=== PATIENT | female | born 1955 | race Caucasian/White ===

== ENCOUNTER → 2016-09-09 19:42 | Outpatient (CLI) | payer OTHER ==
[2015-12-31 06:17] VITALS: BMI 33.8
[~2016-09-09 19:42] MED LIST: ADIPEX-P37.5 MG PO; BAYER CHEWABLE81 MG PO; BELVIQ PO; CHANTIX 1 MG TAB1 MG PO; DULERA 100 MCG8.8 GM INH; HYDROCODON-ACE1 EAC7 PO; HYDROCODONE-APA1 TAB PO; KLONOPIN0.5 MG PO; MILK THISTLE140 MG PO; PLAVIX75 MG PO; SOMA250 MG PO; SOMA350 MG PO; THEOCHRON300 MG; THEOCHRON300 MG PO; TOPROL XL25 MG PO; VENTOLIN HFA18 GM INH; VITAMIN E200 UNI1 PO; VITAMIN E400 UNI2 PO
== END | disposition home or self-care (01) ==
LOC: D.SLEEP 19:42
DX: G47.36 Sleep related hypoventilation in conditions classified elsewhere (principal)

== ENCOUNTER → 2016-10-02 19:21 | Outpatient (CLI) | payer OTHER ==
[2015-12-31 06:17] VITALS: BMI 33.8
== END | disposition home or self-care (01) ==
LOC: D.SLEEP 09-25 20:00
DX: G47.36 Sleep related hypoventilation in conditions classified elsewhere (principal)

== ENCOUNTER → 2016-10-23 10:02 | Outpatient (CLI) | payer OTHER ==
[2015-12-31 06:17] VITALS: BMI 33.8
== END | disposition home or self-care (01) ==
LOC: D.CT 10-20 13:00
DX: J44.9 Chronic obstructive pulmonary disease, unspecified (principal)

== ENCOUNTER → 2017-03-11 13:07 | Outpatient (CLI) | payer OTHER ==
[2015-12-31 06:17] VITALS: BMI 33.8
== END | disposition home or self-care (01) ==
LOC: D.MAMMO 13:07
DX: Z12.31 Encounter for screening mammogram for malignant neoplasm of breast (principal)

== ENCOUNTER → 2017-09-06 07:18 | Outpatient (CLI) | payer OTHER ==
[2015-12-31 06:17] VITALS: BMI 33.8
[~2017-09-06 07:18] MED LIST changes: +BUPROPION XL300 MG PO; +DULERA 200 MCG8.8 GM INH; +INCRUSE ELLI62.5 MCG INH; +IPRATROPIUM BR42 MCG NASAL; +NASONEX NASAL S17 GM NS; +NITROSTAT0.4 MG SL; +SINGULAIR10 MG PO; +VITAMIN D31000 UNIT PO
== END | disposition home or self-care (01) ==
LOC: D.RT 07:18
DX: J44.9 Chronic obstructive pulmonary disease, unspecified (principal)

== ENCOUNTER 2017-09-09 06:58 | Outpatient (CLI) | payer OTHER ==
[~2017-09-09] VITALS: Ht 167.6 cm; Wt 96.4 kg
--- NOTE | ~2017-09-09 | HEMODYNAMI ---
PATIENT:PRESTON KING JANUARY MEDICAL RECORD: [id number] : 59 LOCATION:[facility] ADMISSION DATE: 09/09/17 Generatedon:09/09/201710:32 Patient name: PRESTON KING Patient #: [id number] SSN: : 10[birth year] Date of study: 09/09/2017 Page: Of Hemodynamic Procedure Report Patient Data Patient Demographics Procedure consent was obtained First Name: PRESTON Gender: Female Last Name: CHRISTINE : 1955 Middle Initial: JANUARY Age: 61 year(s) Patient #: [id number] Race: Additional ID: [id number] Contact details Address: [address] [place] [address] ROAD State: [place] City: [place] Zip code: [address] Past Medical History Allergies Allergen Reaction Date Comments Reported Other allergy 12/31/2015 Compazine Other allergy 09/09/2017 COMPAZINE Admission Admission Data Admission Date: 09/09/2017 Admission Time: 6:58 Height (in.): 5.6 BSA: 0.34 (m2) Height (cm.): 14.22 BMI: 4730.48 (kg/m2) Weight (lbs.): 211 Weight (kg.): 95.71 Lab Results Lab Result Date: 09/09/2017 Lab Result Time: 0:00 Biochemistry Name Units Result Min Max BUN mg/dl 14 --(--*-)-- 7 18 Creatinine mg/dl 1.1 --(--*-)-- 0.6 1.3 CBC Name Units Result Min Max Hemoglobin g/dl 13.8 --(*---)-- 13.5 17.5 Procedure Procedure Types Cath Procedure Diagnostic Procedure [facility] w/Coronaries FFR/IVUS Intra-Coronary IVUS Initial PCI Procedure Coronary Stent Coronary Stent Initial Miscellaneous Procedures Moderate Sedation up to 45 minutes Procedure Description Procedure Date Procedure Date: 09/09/2017 Procedure Start Time: 9:47 Procedure End Time: 10:30 Procedure Staff Name Function Brian Man MD Performing Physician Anahy Lyons RT Monitor Ned Perez RT Scrub Parish Ochoa RN Nurse Procedure Data Cath Procedure Fluoroscopy Diagnostic fluoroscopy Total fluoroscopy Time: 6.4 time: 6.4 min min Diagnostic fluoroscopy Total fluoroscopy dose: 851 dose: 851 mGy mGy Contrast Material Contrast Material Type Amount (ml) Isovue 300 117 Entry Location Entry Primary Successful Side Size Upsize Upsize Entry Closure Succes sful Closure Location (Fr) 1 (Fr) 2 (Fr) Remarks Device Remarks Femoral Right 5 Fr 6 Fr Exoseal artery Short Estimated blood loss: 10 ml Diagnostic catheters Device Type Used For End Catheter Placement MULTIPACK JL 4.0 5Fr Procedure catheter MULTIPACK 3DRC 5Fr Procedure catheter MULTIPACK Pigtail 5 Fr Procedure catheter Procedure Complications No complications Procedure Medications Medication Administration Route Dosage Oxygen NC 2 l/min Heparin Flush Bag added to field 2 bags (1000units/500ml NS) 0.9% NaCl I.V. 100 ml/hr Radial Cocktail added to field 1 syringe (Verapomil 2mg/Nitro 400mcg/Heparin 1500units) Fentanyl I.V. 50 mcg Versed I.V. 1 mg Fentanyl I.V. 50 mcg Versed I.V. 1 mg Fentanyl I.V. 50 mcg Fentanyl I.V. 50 mcg Heparin Bolus I.V. 9000 units Fentanyl I.V. 50 mcg Plavix P.O. 600 mg Hemodynamics Rest BSA: 0.34 (m2) HGB: 13.8 (g/dl) O2 Consumption: Estimated: 30.17 (ml/min) O2 Con sumption indexed: Estimated:88.74 (ml/min/m) Heart Rate: 53 (bpm) Pressure Samples Time Site Value (mmHg) Purpose Heart Use Rate(bpm) 10:02 LV 135/-10,11 Snapshot 64 10:03 AO 143/72(103) Pullback 64 10:03 LV 123/16,14 Pullback 64 Gradients Valve Time Site 1 Site 2 Mean SEP/DFP Peak To Heart Use (mmHg) (sec/min) Peak Rate (mmHg) (bpm) Aortic 10:03 LV AO 0 4 0 64 123/16,14 143/72(103) Calculations Valve P-P Mean Valve Index Valve Source Name Gradient Area Flow (cm2) Aortic 0 0 0 0 Snapshots Pre Cath Intra NCS Post Cath Vital Signs Time Heart Resp SPO2 etCO2 NIBP (mmHg) Rhythm Pain Sedation Rate (ipm) (%) (mmHg) Status Level (bpm) 9:37:38 53 19 100 34.9 131/64(89) NSR 0 (11) 10(A) , No pain 9:41:45 51 16 100 35.6 120/59(84) NSR 0 (11) 10(A) , No pain 9:46:06 50 18 98 42.5 111/44(80) NSR 0 (11) 9(A) , No pain 9:50:20 52 18 98 29.6 115/51(85) NSR 0 (11) 9(A) , No pain 9:54:33 50 16 97 40.2 117/56(77) NSR 0 (11) 9(A) , No pain 9:58:45 55 20 96 38 114/62(83) NSR 0 (11) 9(A) , No pain 10:02:51 61 18 97 51.6 108/80(89) NSR 0 (11) 9(A) , No pain 10:06:59 58 18 98 38.7 118/65(103) NSR 0 (11) 9(A) , No pain 10:11:09 61 17 98 42.5 136/71(93) NSR 0 (11) 9(A) , No pain 10:15:27 62 17 98 48.6 124/53(98) NSR 0 (11) 9(A) , No pain 10:19:41 61 17 98 38 115/58(90) NSR 0 (11) 9(A) , No pain 10:23:53 70 19 98 47.8 121/64(96) NSR 0 (11) 9(A) , No pain 10:28:09 63 19 98 38.7 127/58(99) NSR 0 (11) 9(A) , No pain Medications Time Medication Route Dose Verified Delivered Reason Note s Effectiveness by by 9:41:57 Oxygen NC 2 l/min Brian Lugo Per physician Donovan Ochoa RN 9:42:06 Heparin Flush added 2 bags Brian Lugo used for Bag to Donovan Ochoa ladle mechanic (1000units/500ml field NS) 9:42:16 0.9% NaCl I.V. 100 Brianbernie Lugo Per physician ml/hr Donovan Ochoa RN 9:42:25 Radial Cocktail added 1 Brian Parish used for (Verapomil to syringe Donovan Ochoa RN procedure 2mg/Nitro field 400mcg/Heparin 1500units) 9:42:46 Fentanyl I.V. 50 mcg Brian Parish for sedation Donovan Ochoa RN 9:42:51 Versed I.V. 1 mg Brian Parish for sedation Donovan Ochoa RN 9:48:44 Fentanyl I.V. 50 mcg Brian Parish for sedation Donovan Ochoa RN 9:48:50 Versed I.V. 1 mg Brian Parish for sedation Donovan Ochoa RN 9:53:42 Fentanyl I.V. 50 mcg Brian Parish for sedation Donovan Ochoa RN 9:56:51 Fentanyl I.V. 50 mcg Brian Parish for sedation Donovan Ochoa RN 10:11:07 Heparin Bolus I.V. 9000 Brian Parish for units Donovan Ochoa RN anticoagulation 10:11:39 Fentanyl I.V. 50 mcg Brian Parish for sedation Donovan Ochoa RN 10:27:14 Plavix P.O. 600 mg Brian Parish for Donovan Ochoa RN antiplatelet therapy Procedure Log Time Note 9:05:43 Ned Perez RT(R) sent for patient. Start room use. 9:14:03 Patient Height : 5.6 inches 9:14:08 Patient Weight : 211 lbs 9:15:46 Time tracking: Regular hours 9:15:51 Plan of Care:Hemodynamics will remain stable., Cardiac rhythm will remain stable., Comfort level will be maintained., Respiratory function will remain adequate., Patient/ family verbilizes understanding of procedure., Procedure tolerated without complication., Recovers from procedure without complications.. 9:18:48 Patient received from Pre/Post Procedure Room to CCL 2 Alert and oriented. Tansferred to table in Supine position. 9:18:49 Warm blankets applied, and kamilah hugger turned on for patient comfort. 9:18:49 Correct patient and procedure confirmed by team. 9:18:51 Signed procedure consent form obtained from patient. 9:18:51 ECG and BP/O2 sat monitors applied to patient. 9:19:47 Patient allergic to Other allergyCOMPAZINE 9:20:10 Lab Result : BUN 14 mg/dl 9:20:10 Lab Result : Hemoglobin 13.8 g/dl 9:20:10 Lab Result : Creatinine 1.1 mg/dl 9:20:14 Lab results completed and on chart. 9:25:44 IV right forearm D/C'd due to infiltration. 9:26:03 IV started by Parish Ochoa RN inright forearm with a 22 gauge IV catheter with 0.9% NaCl at KVO. 9:36:29 Vital chart was started 9:36:30 Baseline sample Acquired. 9:36:34 Rhythm: sinus bradycardia 9:36:35 Full Disclosure recording started 9:36:40 H&P Date Dictated: 09/09/2017 Within 30 days and on chart., H&P Addendum completed by physician on day of procedure. (MUST COMPLETE FOR ALL OUTPATIENTS). 9:36:41 Pre-procedure instructions explained to patient. 9:36:41 Pre-op teaching completed and patient verbalized understanding. 9:36:43 Family in patients room. 9:36:45 Patient NPO since Midnight. 9:36:47 Is the patient allergic to Iodine/contrast media? No. 9:36:49 Is patient on blood thinner?Yes 9:36:51 ACC The patient was administered the following blood thiners within the last 24 hours: ACCAspirin 9:36:53 Patient diabetic? No. 9:36:55 Patient not . Patient is over age 55. 9:36:58 Previous problem with sedation/anesthesia? No ? 9:36:59 Snore? Yes 9:37:01 Sleep apnea? Yes 9:37:02 Deviated septum? No 9:37:02 Opens mouth fully? Yes 9:37:03 Sticks out tongue? Yes 9:37:06 Airway obstruction? Yes COPD 9:37:10 Dentures? Yes IN TIGHT 9:37:13 Modified De's test Ulnar < 7 seconds 9:37:28 Right Radial & Right Groin area was prepped with chlora-prep and draped in sterile fashion 9:37:31 Alarms reviewed by R. N. 9:37:31 Sharps counted by scrub and verified by R.N. 9:38:43 ACIST Syringe (61743) opened to sterile field. 9:38:44 ACIST Hand Control (47033) opened to sterile field. 9:38:44 ACIST Manifold (66844) opened to sterile field. 9:38:45 Tegaderm 4 x 4 (1626W) opened to sterile field. 9:38:48 Medline Cath Pack ([id number]) opened to sterile field. 9:38:48 Bag Decanter (2001S) opened to sterile field. 9:38:50 DIAGNOSTIC WIRE .035 260cm J wire (998209) opened to sterile field. 9:38:50 MBrace Wrist Support ([id number]) opened to sterile field. 9:38:51 NEEDLE Cook 21G 4cm Radial (P77248) opened to sterile field. 9:41:57 Oxygen 2 l/min NC was administered by Parish Ochoa RN; Per physician; 9:42:06 Heparin Flush Bag (1000units/500ml NS) 2 bags added to field was administered by Parish Ochoa RN; used for procedure; 9:42:06 --------ALL STOP TIME OUT------ 9:42:07 Final Timeout: patient, procedure, and site verified with staff and physician. All members of the team are in agreement. 9:42:08 Right Radial & Right Groin site verified by team. 9:42:11 Physical assessment completed. ASA score P 2 - A patient with mild systemic disease as per Brian Man MD. 9:42:14 Sedation plan: IV Moderate Sedation Medication:Versed, Fentanyl 9:42:16 0.9% NaCl 100 ml/hr I.V. was administered by Parish Ochoa RN; Per physician; 9:42:25 Radial Cocktail (Verapomil 2mg/Nitro 400mcg/Heparin 1500units) 1 syringe added to field was administered by Parish Ochoa RN; used for procedure; 9:42:46 Fentanyl 50 mcg I.V. was administered by Parish Ochoa RN; for sedation; 9:42:51 Versed 1 mg I.V. was administered by Parish Ochoa RN; for sedation; 9:47:35 Procedure started. 9:47:42 Local anesthetic to right radial artery with Lidocaine 2% by Brian Man MD.INITIAL ACCESS ONLY 9:48:17 Zero performed for pressure channel P1 9:48:29 Zero performed for pressure channel P1 9:48:44 Fentanyl 50 mcg I.V. was administered by Parish Ochoa RN; for sedation; 9:48:50 Versed 1 mg I.V. was administered by Parish Ochoa RN; for sedation; 9:51:24 SHEATH 5FR Larose (IFS720) opened to sterile field. 9:51:44 Use device set Femoral Dx 9:51:46 PERCUTANEOUS ENTRY 19GA needle opened to sterile field. 9:52:04 DIAGNOSTIC Multipack 5Fr catheter set (DX7462) opened to sterile field. 9:52:48 Local anesthetic to right femoral artery with Lidocaine 2% by Brian Man MD.ADDITIONAL ACCESS 9:53:42 Fentanyl 50 mcg I.V. was administered by Parish Ochoa RN; for sedation; 9:55:17 A 5 Fr sheath was inserted into the Right Femoral artery 9:56:39 A MULTIPACK JL 4.0 5Fr catheter was advanced over the wire and used for Procedure. 9:56:51 Fentanyl 50 mcg I.V. was administered by Parish Ochoa RN; for sedation; 9:57:05 LCA angiography performed. 9:58:02 Catheter removed. 9:58:41 A MULTIPACK 3DRC 5Fr catheter was advanced over the wire and used for Procedure. 9:59:58 RCA angiography performed. 10:01:04 Catheter removed. 10:01:38 A MULTIPACK Pigtail 5 Fr catheter was advanced over the wire and used for Procedure. 10:02:01 LV gram done using ZARATE 10:05:44 Injector settings: Ml/sec: 10, Volume: 20, 10:05:45 LV hemodynamics recorded. 10:05:51 EF : 60 % 10:05:52 Catheter removed. 10:06:09 SHEATH 6FR Larose (GBG303) opened to sterile field. 10:06:13 INFLATOR Merit BasixCompak (TQ3619) opened to sterile field. 10:06:24 BMW 300cm [place] 2 J wire ([id number]) opened to sterile field. 10:06:33 [place] Eagleye IVUS Catheter (05065A) opened to sterile field. 10:06:52 Sheath upsized to a 6 Fr Short. 10:07:03 TUBING High Pressure Extension Tubing (Donovan) (BY3526L) opened to sterile field. 10:08:49 GUIDE 6FR AR 1.0 catheter (FG8TC09) opened to sterile field. 10:09:03 6 Fr AR1 guide catheter was inserted over the wire 10:10:40 BMW wire advanced. 10:11:07 Heparin Bolus 9000 units I.V. was administered by Parish Ochoa RN; for anticoagulation; 10:11:19 Wire advanced across lesion. 10:11:39 Fentanyl 50 mcg I.V. was administered by Parish Ochoa RN; for sedation; 10:11:53 IVUS catheter advanced over wire. 10:15:24 IVUS pass to RCA lesion performed. 10:16:15 IVUS catheter removed over wire. 10:21:28 Inflation Number: 1 A INTEGRITY OTW 3.0 X 18 stent ([id number]) was prepped and advanced across the Prox RCA. The stent was deployed at 14 REY for 0:10 (min:sec). 10:22:31 Stent catheter was removed intact over wire. 10:22:38 Wire removed. 10:22:39 Guide catheter removed. 10:23:00 EXOSEAL 6Fr (EX600) opened to sterile field. 10:24:06 Procedure ended.(Physican Out) 10:24:11 Sheath removed intact; hemostasis achieved with Exoseal to the Right Femoral artery. 10:24:16 Fluoroscopy time 06.40 minutes. 10:24:22 Fluoroscopy dose: 851 mGy 10:24:22 Flurop Dose total: 851 10:24:27 Contrast amount:Isovue 300 117ml. 10:24:29 Sharps counted by scrub and verified by R.N. 10:24:30 Insertion/operative site no bleeding no hematoma. 10:24:33 Post-op/insertion site Right Femoral artery dressed using a 4 x 4 and Tegaderm. 10:24:37 Post right femoral artery:stable, soft, clean and dry 10:25:43 Post-procedure physical assessment completed. ASA score P 2 - A patient with mild systemic disease as per Brian Man MD. 10:25:47 Post procedure rhythm: unchanged. 10:25:49 Estimated blood loss: 10 ml 10:25:51 Post procedure instruction explained to patient.Patient verbalizes understanding. 10:25:51 Patient needs reinforcement of post procedure teaching. 10:26:24 Procedure type changed to Cath procedure, Diagnostic procedure, LHC, LHC w/Coronaries, FFR/IVUS, Intra-Coronary IVUS Initial, PCI procedure, Coronary Stent, Coronary Stent Initial, Miscellaneous Procedures, Moderate Sedation up to 45 minutes 10:27:14 Plavix 600 mg P.O. was administered by Parish Ochoa RN; for antiplatelet therapy; 10:27:17 Procedure and supply charges have been captured, reviewed, submitted and are correct. 10:27:19 Procedure Complication : No complications 10:30:16 SMALL SKIN TEAR ON PATIENTS GROIN FROM DRAPE 10:30:26 Vital chart was stopped 10:30:27 See physician's report for complete and final results. 10:30:28 Report given to Pre/Post Procedure Room. 10:30:36 Patient transfered to Pre/Post Procedure Room with Bed. 10:30:39 Procedure ended. 10:30:39 Full Disclosure recording stopped 10:31:43 End room use (Document Last) Intervention Summary Intervention Notes Time ActionType Lesion and Equipment Action# Pressure Duration Attributes Used 10:21:28 Place stent Prox RCA INTEGRITY 1 14 00:10 OTW 3.0 X 18 stent ([id number]) Device Usage Item Name Manufacture Quantity Catalog Hospital Part Current Minima l Lot# / Number Charge Number Stock Stock Serial# Code ACIST Acist 1 35728 438044 929879 809054 20 Syringe Medical (39840) Systems Inc ACIST Hand Acist 1 49304 154385 943256 997112 5 Control Medical (23566) Systems Inc ACIST Acist 1 35787 891167 150390 290683 5 Manifold Medical (03475) Systems Inc Tegaderm 4 x 3M 1 1626W 842706 178073 803711 5 4 (1626W) Medline Cath Cardinal 1 [id number] 432520 55339 354813 5 Pack Health ([id number]) Bag Decanter Microtek 1 2001S 196826 56135 317562 5 (2001S) Medical Inc. DIAGNOSTIC St Yonis 1 042198 708796 651673 029629 30 WIRE .035 260cm J wire (890417) MBrace Wrist Advanced 1 140-0250-00 953522 23943 863702 5 Support Vascular (620944740) Dynamics NEEDLE IndigoVision 1 C04275 941938 362596 430584 5 21G 4cm Radial (I04463) SHEATH 5FR Terumo 1 SVM409 980669 965120 856522 40 Larose (ANX663) PERCUTANEOUS Cook Medical 1 U88020 766209 694202 5 ENTRY 19GA needle DIAGNOSTIC Cardinal 1 TU4409 719058 52595 080058 30 Multipack Health 5Fr catheter set (ZA4096) MULTIPACK JL Cardinal 1 597865 5 4.0 5Fr Health catheter MULTIPACK Cardinal 1 949097 5 3DRC 5Fr Health catheter MULTIPACK Cardinal 1 917651 5 Pigtail 5 Fr Health catheter SHEATH 6FR Terumo 1 QHY821 607500 931869 034911 40 Larose (OWN450) INFLATOR Merit 1 VP1452 969252 419591 550887 15 [facility] Medical BasixCompak (JQ5118) BMW 300cm Kiser 1 [id number] 031134 601958 867666 5 [place] 2 Vascular J wire (9792566D) Richland Rich[place] 1 54931R 559538 206682 217501 8 [place] Eagleye IVUS Catheter (20125A) TUBING High Merit 1 [id number] 741955 29746 160902 10 Pressure Medical Extension Tubing (Man) (EA1968P) GUIDE 6FR AR Medtronic 1 [id number] 028962 37953 006827 1 1.0 catheter (WJ4OW40) INTEGRITY Medtronic 1 [id number] 859021 318057 2 [id number] OTW 3.0 X 18 stent ([id number]) EXOSEAL 6Fr Cardinal 1 EX600 983343 107032 060426 10 (EX600) Health Signature Audit [place] Stage Time Signature Unsigned Intra-Procedure 09/09/2017 Anahy Lyons 10:32:50 AM RT(R) Signatures Monitor : Anahy Lyons Signature : RT Date : Time : [facility] [address] [place] [address]
[~2017-09-09 06:58] MED LIST changes: -BUPROPION XL300 MG PO; -DULERA 200 MCG8.8 GM INH; -INCRUSE ELLI62.5 MCG INH; -IPRATROPIUM BR42 MCG NASAL; -NASONEX NASAL S17 GM NS; -NITROSTAT0.4 MG SL; -SINGULAIR10 MG PO; -VITAMIN D31000 UNIT PO
[2017-09-09] MEDS ORDERED: DULERA 200 MCG8.8 GM INH (07:50)
[2017-09-09] MEDS ORDERED: INCRUSE ELLI62.5 MCG INH (07:51)
[2017-09-09] MEDS ORDERED: IPRATROPIUM BR42 MCG NASAL (07:51)
[2017-09-09] MEDS ORDERED: NASONEX NASAL S17 GM NS (07:52)
[2017-09-09] MEDS ORDERED: NITROSTAT0.4 MG SL (07:52)
[2017-09-09] MEDS ORDERED: SINGULAIR10 MG PO (07:53)
[2017-09-09] MEDS ORDERED: VITAMIN D31000 UNIT PO (07:53)
[2017-09-09] MEDS ORDERED: BUPROPION XL300 MG PO (07:54)
[2017-09-09 07:57] VITALS: BP 123/53; Ht 167.6 cm; Wt 96.4 kg
[2017-09-09 08:06] LABS: BASOPHILS 0.3 % (0-2); EOSINOPHILS 1.6 % (0-7); HEMATOCRIT 41.6 % (36.0-48.0); HEMOGLOBIN 13.8 g/dL (12-16); LYMPHOCYTES 37.2 % (15-50); MCH 31.1 pg (26.0-34.0); MCHC 33.2 g/dL (31.0-37.0); MCV 93.7 fL (80.0-100.0); MEAN PLATELET VOLUME 9.1 fL (7.4-10.4); MONOCYTES 7.9 % (2-11); PLATELET COUNT 163 10x3/uL (130-400); RBC 4.44 10x6/uL (4.00-5.40); WBC 3.7 10x3/uL (4.8-10.8)
[2017-09-09 08:16] LABS: CARBON DIOXIDE 27.6 mmol/L (21.0-32.0); CREATININE - SERUM 1.1 mg/dL (0.6-1.3); POTASSIUM - SERUM 4.6 mmol/L (3.5-5.1)
[2017-09-09] MEDS ORDERED: PLAVIX75 MG PO (10:41)
== END 2017-09-09 14:30 | disposition home or self-care (01) ==
LOC: D.CATH 06:58
PROVIDERS: Internal Medicine Cardiovascular Disease
DX: I25.118 Atherosclerotic heart disease of native coronary artery with other forms of angina pectoris (principal); R94.30 Abnormal result of cardiovascular function study, unspecified; J44.9 Chronic obstructive pulmonary disease, unspecified; I10 Essential (primary) hypertension; Z01.812 Encounter for preprocedural laboratory examination

== ENCOUNTER → 2018-11-21 13:01 | Outpatient (CLI) | payer MEDICAID ==
[2017-09-09 07:57] VITALS: BMI 34.3
[~2018-11-21 13:01] MED LIST changes: +BUPROPION XL300 MG PO; +DULERA 200 MCG8.8 GM INH; +INCRUSE ELLI62.5 MCG INH; +IPRATROPIUM BR42 MCG NASAL; +NASONEX NASAL S17 GM NS; +NITROSTAT0.4 MG SL; +SINGULAIR10 MG PO; +VITAMIN D31000 UNIT PO
== END | disposition home or self-care (01) ==
LOC: D.HCCARDIO 13:01
PROVIDERS: ATTEND Internal Medicine Cardiovascular Disease
DX: I25.10 Atherosclerotic heart disease of native coronary artery without angina pectoris (principal)

== ENCOUNTER → 2018-12-13 11:25 | Outpatient (CLI) | payer MEDICAID ==
[2017-09-09 07:57] VITALS: BMI 34.3
== END | disposition home or self-care (01) ==
LOC: D.RT 11:25
PROVIDERS: ATTEND Nurse Practitioner Acute Care
DX: J44.9 Chronic obstructive pulmonary disease, unspecified (principal)

== ENCOUNTER → 2019-02-17 10:00 | Outpatient (CLI) | payer MEDICAID ==
[2017-09-09 07:57] VITALS: BMI 34.3
== END | disposition home or self-care (01) ==
LOC: D.MAMMO 09:30
PROVIDERS: ATTEND Family Medicine
DX: Z12.31 Encounter for screening mammogram for malignant neoplasm of breast (principal)

== ENCOUNTER → 2019-11-23 09:29 | Outpatient (CLI) | payer MEDICAID ==
[2017-09-09 07:57] VITALS: BMI 34.3
== END | disposition home or self-care (01) ==
LOC: D.HCCECHO 09:29
PROVIDERS: ATTEND Internal Medicine Cardiovascular Disease
DX: I25.10 Atherosclerotic heart disease of native coronary artery without angina pectoris (principal)

== ENCOUNTER → 2020-01-16 11:33 | Outpatient (CLI) | payer MEDICAID ==
[2017-09-09 07:57] VITALS: BMI 34.3
== END | disposition home or self-care (01) ==
LOC: D.LABREF 11:33
PROVIDERS: ATTEND Internal Medicine Pulmonary Disease
DX: Z11.59 Encounter for screening for other viral diseases (principal)

== ENCOUNTER → 2020-01-17 08:46 | Outpatient (CLI) | payer MEDICAID ==
[2017-09-09 07:57] VITALS: BMI 34.3
== END | disposition home or self-care (01) ==
LOC: D.RT 08:46
PROVIDERS: ATTEND Internal Medicine Pulmonary Disease
DX: J44.9 Chronic obstructive pulmonary disease, unspecified (principal)

== ENCOUNTER → 2020-03-18 11:45 | Outpatient (CLI) | payer MEDICAID ==
[2017-09-09 07:57] VITALS: BMI 34.3
== END | disposition home or self-care (01) ==
LOC: D.MAMMO 11:45
PROVIDERS: ATTEND Registered Nurse Emergency
DX: Z12.31 Encounter for screening mammogram for malignant neoplasm of breast (principal)

== ENCOUNTER → 2020-12-12 12:00 | Outpatient (CLI) | payer OTHER, MEDICAID ==
[2017-09-09 07:57] VITALS: Ht 165.1 cm; Wt 97.5 kg
[~2020-12-12] VITALS: Ht 165.1 cm; Wt 97.5 kg
[2020-12-12 11:21] LABS: BASOPHILS 0.2 % (0-2); EOSINOPHILS 1.3 % (0-7); HEMATOCRIT 43.4 % (36.0-48.0); HEMOGLOBIN 14.6 g/dL (12-16); IMMATURE GRANULOCYTES 0.2 % (0-5); LYMPHOCYTE ABS# 2.16 10x3/uL (1.18-3.74); LYMPHOCYTES 45.4 % (15-50); MCH 31.1 pg (26.0-34.0); MCHC 33.6 g/dL (31.0-37.0); MCV 92.5 fL (80.0-100.0); MEAN PLATELET VOLUME 9.3 fL (7.4-10.4); MONOCYTES 5.3 % (2-11); NEUTROPHIL ABS# 2.27 10x3/uL (1.56-6.13); NEUTROPHILS 47.6 % (40-80); PLATELET COUNT 194 10x3/uL (130-400); RBC 4.69 10x6/uL (4.00-5.40); RDW 12.7 % (11.5-14.5); WBC 4.8 10x3/uL (4.8-10.8)
[2020-12-12 11:29] LABS: ANION GAP 11.8 mmol/L (8-16); CALCIUM 9.2 mg/dL (8.5-10.1); CARBON DIOXIDE 29.2 mmol/L (21.0-32.0)
[~2020-12-12 12:00] MED LIST changes: +ADVAIR 250-501 EAC1 INH; +PEPCID AC20 MG PO; +ZANAFLEX4 MG PO
== END ==
LOC: D.PAN 12:00 → D.OPS 12-13 09:45 → EDSTATUS 12-13 13:45 → D.OPS 12-13 13:45
PROVIDERS: Anesthesiology; ATTEND Orthopaedic Surgery
DX: G56.01 Carpal tunnel syndrome, right upper limb (principal)

== ENCOUNTER → 2020-12-25 08:24 | Outpatient (CLI) | payer OTHER, MEDICAID ==
[2017-09-09 07:57] VITALS: BMI 34.3
--- NOTE | ~2020-12-25 | ST ---
PATIENT:PRESTON KING JANUARY MEDICAL RECORD: [id number] SEX: F [facility] ORDER #: ADMISSION DATE: 12/25/20 AGE OF PATIENT: 65 REFERRING PHYSICIAN: INTERPRETING PHYSICIAN: DAVID FUENTES MD DATE OF SERVICE: 12/25/2020 PROCEDURE: Nuclear stress test. FINDINGS: Gated is normal. Normal wall motion. Normal EF. Calculated EF at 70% SPECT IMAGING: SPECT imaging; short axis view shows a fixed inferoapical defect. It actually improved with stress. This was confirmed with horizontal axis with a fixed inferior defect that improves with stress. VERTICAL AXIS: Vertical axis shows good uptake along the lateral wall and septum FINAL IMPRESSION: 1. Normal gated. Normal wall motion. Normal ejection fraction 70%. 2. Normal SPECT imaging with a fixed inferior defect along the inferior apex improved with stress. This patient with known history of coronary artery disease, scan appears to be quite stable. The defect as described above, improved with stress and may in fact represent tissue attenuation. Continue medical management and risk factor modification as recommended. TRANSINT:[id number] Voice Confirmation ID: [id number] DOCUMENT ID: [id number] DAVID FUENTES MD CC: [id number] DICTATION DATE: 12/25/20 1635 STOPPER GRINDER: 12/26/20 0526 DEP CLI 12/25/20 [id number] [place] [address]
== END | disposition home or self-care (01) ==
LOC: D.HCCARDIO 08:24
PROVIDERS: ATTEND Internal Medicine Interventional Cardiology
DX: R06.00 Dyspnea, unspecified (principal)

== ENCOUNTER → 2021-01-17 12:55 | Outpatient (CLI) | payer OTHER, MEDICAID ==
[2017-09-09 07:57] VITALS: BMI 34.3
== END | disposition home or self-care (01) ==
LOC: D.US 12:55
PROVIDERS: ATTEND Internal Medicine Cardiovascular Disease
DX: I65.23 Occlusion and stenosis of bilateral carotid arteries (principal)

== ENCOUNTER → 2021-02-07 09:09 | Outpatient (CLI) | payer OTHER, MEDICAID ==
[2017-09-09 07:57] VITALS: BMI 34.3
== END | disposition home or self-care (01) ==
LOC: D.LAB 09:09
PROVIDERS: ATTEND Internal Medicine Pulmonary Disease
DX: Z11.52 Encounter for screening for COVID-19 (principal)

== ENCOUNTER → 2021-02-13 08:45 | Outpatient (CLI) | payer OTHER, MEDICAID ==
[2017-09-09 07:57] VITALS: BMI 34.3
== END | disposition home or self-care (01) ==
LOC: D.RT 08:45
PROVIDERS: ATTEND Internal Medicine Pulmonary Disease
DX: J45.909 Unspecified asthma, uncomplicated (principal); Z11.52 Encounter for screening for COVID-19